=== PATIENT | male | born 1990 | race Asian ===

== ENCOUNTER 2023-07-18 01:18 | Emergency (ER) | payer SELFPAY ==
[~2023-07-18] VITALS: Ht 170.2 cm; Wt 80.0 kg
[2023-07-18 01:25] VITALS: BP 100/82; PULSE 78; RESP 18; TEMP 97.9; O2SAT 98
[2023-07-18] MEDS ORDERED: POLY17PO3 MT (19:02)
== END 2023-07-18 05:21 | disposition home or self-care (01) ==
LOC: ER 01:18
DX: R33.9 Retention of urine, unspecified (principal)
CPT/HCPCS: 51702; 99284; A4315

== ENCOUNTER 2023-07-18 16:59 | Emergency (ER) | payer SELFPAY ==
[~2023-07-18] VITALS: Ht 177.8 cm; Wt 73.0 kg
[2023-07-18 17:08] VITALS: O2SAT 100
[2023-07-18] MEDS ORDERED: POLY17PO3 MT (19:02)
[2023-07-18 19:24] VITALS: BP 132/52; PULSE 80; RESP 16; TEMP 98.4
== END 2023-07-18 19:26 | disposition home or self-care (01) ==
LOC: ER 16:59
DX: K59.00 Constipation, unspecified (principal)
CPT/HCPCS: 99281; 99282